=== PATIENT | female | born 1960 | race Caucasian/White ===

== ENCOUNTER 2018-04-01 09:33 | Observation (INO) | payer SELFPAY ==
[2018-04-01 13:13] LABS: Troponin I 0.033 ng/mL (< 0.028)
[2018-04-01] MEDS ORDERED: Ondansetron ODT 4 MG TAB PO PRN (13:45)
[2018-04-01] MEDS ORDERED: Ondansetron PF 4 MG/2 ML Vial IVP PRN (13:45)
[2018-04-01 16:03] LABS: Troponin I 0.036 ng/mL (< 0.028)
[2018-04-01] MEDS ORDERED: Acetaminophen 325 MG TAB PO PRN (16:48)
--- NOTE | 2018-04-01 18:01 | HP ---
CHIEF COMPLAINT: Dyspnea on exertion and orthopnea x2 weeks. HISTORY OF PRESENT ILLNESS: This is a 57-year-old woman with a background of hypertension, who presents to the ED as a transfer from [place] for evaluation of persistent shortness of breath for the last 2 weeks. The patient states she has noted increased dyspnea on exertion and when lying flat. She reports feeling gurgling in her chest with difficulty catching her breath at times even once sat upright. She reports being off her hypertension medication since May 2017. She has no known underlying heart disease or known lung disease. She does report being a heavy smoker and currently smokes half a pack per day, significantly reduced from what she smoked in the past. She reports having a very strong family history of heart disease in both her mother's and father's side. Mother of an VT in the 50s and reports her mother had multiple MIs. She states her father also had multiple MIs as well as strokes. She reports having a chronic cough without any hemoptysis. Denies having any changes in her appetite. Has not had any nausea or vomiting. Denies having any chills, fevers, or night sweats. She reports having discomfort in her chest when lying flat, but otherwise denies any chest pain. Denies any abdominal pain, nausea, or vomiting. No urinary symptoms. Has not had any lower leg edema or swelling. Denies any calf pain. All other systems are negative. In the ED, she has undergone a chest x-ray, notable for enlarged heart. Final report not available. Changes suggestive of heart failure were seen as per ED physician. BNP raised at 2914. Initial TnI was 0.023. Serial TnI was pending. D-dimer was negative. She is being admitted for further workup and management. She was given Lasix and has had frequent urinations since. The patient states she has noticed significant improvement with her breathing since given the Lasix. She also did have relief of her discomfort with nitroglycerin, which was also given in the ED. At present, she feels comfortable and is without any complaints. PAST MEDICAL HISTORY: Hypertension. PAST SURGICAL HISTORY: Left foot surgery. SOCIAL HISTORY: She drinks socially. Denies any illicit drug use. Reports smoking half a pack per day. Has been a long-time smoker for approximately 30 years. ALLERGIES: NO KNOWN DRUG ALLERGIES. CURRENT MEDICATIONS: Amlodipine 5 mg p.o. daily. The patient has been off this since May 2017. PHYSICAL EXAMINATION: VITAL SIGNS: Temperature 97.7, pulse 87, respirations 12, O2 saturation 96% on room air, and blood pressure 115/74. GENERAL: The patient was found resting comfortably in bed with head elevated and in no apparent distress. SKIN: Normal warm and dry. No cyanosis. HEENT: Normocephalic and atraumatic. Pupils are equal, round, and reactive to light. Sclerae anicteric. Oropharynx is clear. NECK: Supple with no lymphadenopathy. LUNGS: Clear to auscultation bilaterally. CARDIOVASCULAR: Regular rate and rhythm. ABDOMEN: Soft, nontender, nondistended with bowel sounds present. No guarding or rigidity. No CVA tenderness. EXTREMITIES: No clubbing, cyanosis, or edema. NEUROLOGIC: Alert and oriented x3. LABORATORY DATA: TnI is 0.023. Awaiting subsequent TnIs. BNP is 2914. D- dimer negative. Hemoglobin 16.4, hematocrit 52.1, and platelets 272. Electrolytes unremarkable. BUN 20, creatinine 0.85 eGFR 69. LFTs unremarkable. CK-MB 3.4. IMAGING DATA: 1. Chest x-ray done on 04/01/2018. Notable for cardiomegaly, bilateral vascular congestion, mild interstitial edema, evidence for CHF. IMPRESSION: The patient is being admitted to the hospital for management of the following. 1. Orthopnea/dyspnea. Continue to monitor O2 saturation. Significantly improved following Lasix. 2. New-onset congestive heart failure. Status post Lasix. Echo and Cardiology Consult. 3. Hypertension. Monitor blood pressure. Hold amlodipine as blood pressure is currently well controlled. 4. Mild headache, resolving. Possibly related to nitroglycerin given in the ED. Monitor. 5. Gastrointestinal prophylaxis. 6. Venous thromboembolism prophylaxis. This patient's case was discussed with Dr. Nava, who agrees with the plan of care as described above. Job ID: [id number] [facility]
[2018-04-01 18:45] LABS: Troponin I 0.032 ng/mL (< 0.028)
[2018-04-01] MEDS ORDERED: Lisinopril 5 MG TAB PO SCH (19:45)
[2018-04-01] MEDS ORDERED: Aspirin 81 mg Enteric Coated Tablet PO SCH (19:45)
--- NOTE | 2018-04-02 01:36 | CON ---
DATE OF CONSULTATION: 04/01/2018 TYPE OF CONSULTATION: Cardiology. REASON FOR CONSULTATION: Congestive heart failure. HISTORY OF PRESENT ILLNESS: Yoly White is a 57-year-old woman with congestive heart failure. Ms. White states she has not been doing well for 2-1/2weeks. She has been unable to lay flat. She has to sit up in bed to breathe. She got progressively worse due to difficulty breathing and "gurgling" in her chest. Finally came to the emergency room, found to be in heart failure, received diuretics, feeling better. The patient states she had a heart catheterization done at some point in the past at some place near [facility], but can not remember where or when this happened. She thinks there is no block that she does not know for sure. She has had no chest pain or pressure. The patient, otherwise, has been in fair health. She has a history of hypertension. She was prescribed amlodipine, but has been off it. ALLERGIES: NONE KNOWN. SOCIAL HISTORY: Smokes less than 1/2 pack cigarettes per day. REVIEW OF SYSTEMS: CONSTITUTIONAL: No significant weight gain or loss. VISION: No changes. HEARING: No changes. PULMONARY: No cough or wheezing. Positive shortness of breath. CARDIAC: Positive for shortness of breath. GASTROINTESTINAL: No nausea, vomiting, or diarrhea. SKIN: No rashes. NEUROLOGIC: No unilateral weakness or numbness. PSYCHIATRIC: No unusual depression or anxiety. HEMATOLOGIC: No unusual bruising. GENITOURINARY: No burning with urination. PHYSICAL EXAMINATION: GENERAL: This is a thin 57-year-old woman, resting comfortably. She can lay flat now, not completely comfortable, but much better. VITAL SIGNS: Blood pressure 125/77, pulse 80, it is regular. EYES: Sclerae nonicteric. MOUTH: Mucous membranes moist. NECK: Supple. No lymphadenopathy. LUNGS: There are bibasilar rales. CARDIAC: Normal S1, normal S2. I do not hear murmur, rub, or gallop. ABDOMEN: Soft and nontender. No hepatomegaly. EXTREMITIES: Warm and dry. No clubbing. No cyanosis. No edema. Peripheral pulses are intact and normal. SKIN: Warm and dry. PERTINENT LABORATORY: BNP 2914. Potassium is 3.8. EKG; sinus rhythm, what looks like left ventricular hypertrophy. ASSESSMENT: 1. Congestive heart failure noted at this point whether systolic or diastolic or mixed. 2. She probably has some degree of left ventricular hypertrophy. Echocardiogram will be diagnostic tomorrow. May have a combination, but we will wait final on the echo. 3. She thinks she had normal coronary arteries and catheterization previously which she does not know when this occurred or where. PLAN: 1. Beta-blockers low-dose. 2. ELIANE inhibitors. 3. Diuretics. 4. Echocardiogram tomorrow. 5. Probably will need cardiac catheterization this admission tentatively on Friday. Would recommend admission for this patient. Job ID: [id number]
[2018-04-02] MEDS: Furosemide 20 MG/2 ML VIAL SLOW IVP SCH ×2 (05:39→13:48)
[2018-04-02 05:53] LABS: #Eosinphils 0.2 thou/uL (0.0-0.7); #Lymphocytes 1.5 thou/uL (1.20-3.40); #Monocytes 0.7 thou/uL (0.11-0.59); #Neutrophils 4.1 thou/uL (1.40-6.50); %Basophils 0.7 % (0.0-1.0); %Eosinophils 2.8 % (0.0-10.0); %Lymphocytes 23.2 % (21.0-51.0); %Monocytes 10.6 % (0.0-10.0); %Neutrophils 62.8 % (42.0-75.0); Hemoglobin 16.2 g/dL (12.0-16.0); Mean Corpuscular HGB CONC 32.7 g/dL (32.0-36.0); Mean Corpuscular Hemoglobin 30.1 pg (27.0-31.0); Mean Corpuscular Volume 91.9 fL (78.0-98.0); Mean Platelet Volume 8.5 fL (7.4-10.4); Platelet Count 234 thou/uL (130-400); Red Blood Cell (RBC) Count 5.37 mill/uL (4.20-5.40); White Blood Cell (WBC) Count 6.5 thou/uL (4.8-10.8)
[2018-04-02 06:20] LABS: ALT (SGPT) 27 U/L (8-55); AST (SGOT) 19 U/L (5-34); Albumin 3.7 g/dL (3.5-5.0); Alkaline Phosphatase 88 U/L (40-150); Anion Gap 14 mmol/L (10-20); BUN (Urea Nitrogen) 19 mg/dL (9.8-20.1); Bilirubin, Total 0.7 mg/dL (0.2-1.2); Calc. Creatinine Clearance 63 mL/min (70-130); Calcium 9.3 mg/dL (7.8-10.44); Carbon Dioxide 25 mmol/L (22-29); Chloride 105 mmol/L (98-107); Estimated GFR-MDRD 76; Globulin 2.5 g/dL (2.4-3.5); Glucose 82 mg/dL (70-105); Potassium 3.6 mmol/L (3.5-5.1); Protein, Total 6.2 g/dL (6.0-8.3); Sodium 140 mmol/L (136-145)
[2018-04-02] MEDS ORDERED: Potassium Chloride 20 MEQ TAB PO SCH (08:00)
[2018-04-02] MEDS ORDERED: Enoxaparin Sodium 30 MG/0.3 ML SYRINGE SC SCH (09:00)
[2018-04-02] MEDS ORDERED: Amlodipine 5 MG TAB PO SCH (09:00)
[2018-04-02] MEDS: Carvedilol 3.125 MG TAB PO SCH ×2 (09:01→16:45)
[2018-04-02] MEDS: Lisinopril 5 MG TAB PO SCH (09:02)
[2018-04-02] MEDS: Aspirin 81 mg Enteric Coated Tablet PO SCH (09:03)
[2018-04-02 14:27] VITALS: BMI 17.7
[2018-04-02] MEDS ORDERED: Diazepam 5 MG TAB PO SCH (19:15)
[2018-04-02] MEDS ORDERED: Communication Order-Pharmacy FS SCH (19:15)
--- NOTE | 2018-04-02 19:42 | PRG ---
DATE OF SERVICE: 04/02/2018 SUBJECTIVE: Ms. White is breathing okay at rest. She can lie flat now, but with exertion, she feels very short of breath. OBJECTIVE: VITAL SIGNS: Her blood pressure is 110/77, followed by 142/71, pulse is 68 and regular. LUNGS: Clear. CARDIAC: Normal S1 and normal S2. ABDOMEN: Soft and nontender. EXTREMITIES: There is no edema. DIAGNOSTIC DATA: Echocardiogram shows an ejection fraction of 15%. ASSESSMENT: Severely depressed left ventricular function, suspect cardiomyopathy but could have underlying coronary artery disease. PLAN: Proceed the cardiac catheterization tomorrow. Discussed risk of stroke, heart attack, iodine allergy, loss of blood supply to leg or kidney, stent thrombosis, stent restenosis. The patient understands and wished to proceed. Job ID: [id number]
--- NOTE | 2018-04-02 21:55 | PDOC.PN ---
- Subjective Encounter Start Date: 04/02/18 Encounter Start Time: 14:00 Patient lying in bed, no events over night. She reports improved shortness of breath today. Denies chest pain. Echo displayed reduced EF. Dr Moreno planning heart cath tomorrow - Objective Resuscitation Status - Order Detail: 04/01/18 15:12 Resuscitation Status Routine Co-Sign Provider: Resuscitation Status: FULL: Full Resuscitation MAR Reviewed: Yes Vital Signs & Weight: Vital Signs (12 hours) Temp Pulse Resp BP Pulse Ox 04/02/18 19:11 98.2 F 87 16 116/75 98 04/02/18 15:25 97.8 F 68 16 142/71 H 96 04/02/18 11:35 97.4 F L 64 16 111/77 96 Weight Admit Weight 112 lb 6.972 oz Weight 109 lb 12.48 oz I&O: 04/01/18 04/02/18 04/03/18 06:59 06:59 06:59 Intake Total 1082 1200 Output Total 1600 Balance -518 1200 Result Diagrams: 04/02/18 05:35 04/02/18 05:34 Radiology Reviewed by me: Yes Phys Exam - Physical Examination Constitutional: NAD HEENT: PERRLA, moist MMs, oral pharynx no lesions Neck: no nodes, supple Respiratory: no wheezing, no rales, clear to auscultation bilateral Cardiovascular: RRR, no significant murmur, no rub Gastrointestinal: soft, non-tender, no distention, positive bowel sounds Musculoskeletal: no edema, pulses present Neurological: non-focal, normal sensation Lymphatic: no nodes Psychiatric: normal affect, A&O x 3 Skin: no rash, normal turgor, cap refill <2 seconds Dx/Plan (1) Systolic heart failure Code(s): I50.20 - UNSPECIFIED SYSTOLIC (CONGESTIVE) HEART FAILURE Status: Acute (2) Hypertension Code(s): I10 - ESSENTIAL (PRIMARY) HYPERTENSION Status: Acute (3) Nicotine dependence Code(s): F17.200 - NICOTINE DEPENDENCE, UNSPECIFIED, UNCOMPLICATED Status: Acute - Plan cont current plan of care * Echo results reviewed and discussed with patient * Dr Moreno planning heart cath tomorrow, expects cardiomyopathy * Await heart cath and further recommendations for medical management * Continue current management * Monitor vitals and labs
[2018-04-03 04:48] LABS: #Basophils 0.1 thou/uL (0.0-0.2); #Eosinphils 0.2 thou/uL (0.0-0.7); #Lymphocytes 1.8 thou/uL (1.20-3.40); #Monocytes 0.8 thou/uL (0.11-0.59); #Neutrophils 3.6 thou/uL (1.40-6.50); %Eosinophils 3.5 % (0.0-10.0); %Lymphocytes 27.3 % (21.0-51.0); %Monocytes 12.3 % (0.0-10.0); %Neutrophils 55.9 % (42.0-75.0); Mean Corpuscular HGB CONC 33.8 g/dL (32.0-36.0); Mean Corpuscular Hemoglobin 30.9 pg (27.0-31.0); Mean Corpuscular Volume 91.5 fL (78.0-98.0); Mean Platelet Volume 8.4 fL (7.4-10.4); Platelet Count 231 thou/uL (130-400); RBC Distribution Width 11.9 % (11.5-14.5); Red Blood Cell (RBC) Count 5.18 mill/uL (4.20-5.40); White Blood Cell (WBC) Count 6.5 thou/uL (4.8-10.8)
[2018-04-03 05:10] LABS: ALT (SGPT) 25 U/L (8-55); AST (SGOT) 16 U/L (5-34); Albumin 3.8 g/dL (3.5-5.0); Alkaline Phosphatase 91 U/L (40-150); Anion Gap 10 mmol/L (10-20); BUN (Urea Nitrogen) 26 mg/dL (9.8-20.1); Bilirubin, Total 0.5 mg/dL (0.2-1.2); Calc. Creatinine Clearance 59 mL/min (70-130); Calcium 9.4 mg/dL (7.8-10.44); Carbon Dioxide 30 mmol/L (22-29); Chloride 104 mmol/L (98-107); Estimated GFR-MDRD 69; Globulin 2.5 g/dL (2.4-3.5); Glucose 97 mg/dL (70-105); Protein, Total 6.3 g/dL (6.0-8.3); Sodium 140 mmol/L (136-145)
[2018-04-03] MEDS: Lisinopril 5 MG TAB PO SCH (05:58)
[2018-04-03] MEDS: Aspirin 81 mg Enteric Coated Tablet PO SCH (05:58)
[2018-04-03] MEDS: Carvedilol 3.125 MG TAB PO SCH (05:58)
[2018-04-03] MEDS ORDERED: Sodium Chloride 0.9% 1,000 ML IV SCH (06:00)
[2018-04-03] MEDS ORDERED: Midazolam HCl 2 mg/2 ml Vial ONE (07:12)
[2018-04-03] MEDS ORDERED: Fentanyl 100 MCG/2 ML VIAL ONE (07:12)
[2018-04-03] MEDS ORDERED: Metoprolol Tartrate 5 MG/5 ML VIAL ONE (07:27)
[2018-04-03] MEDS ORDERED: Nitroglycerin 0.4 MG TAB (25 Tab Bottle) SL PRN (07:29)
[2018-04-03] MEDS ORDERED: Bisacodyl 5 MG TAB PO PRN (07:29)
[2018-04-03] MEDS ORDERED: Loratadine 10 MG TAB PO PRN (07:29)
[2018-04-03] MEDS ORDERED: Calcium Carbonate 500 MG ChewTAB PO PRN (07:29)
[2018-04-03] MEDS ORDERED: Cepastat Lozenges 1 LOZ PO PRN (07:29)
[2018-04-03] MEDS ORDERED: Sodium Chloride 0.65% Nasal 44 ML BOT EA NARE PRN (07:29)
[2018-04-03] MEDS ORDERED: Eucerin (Mineral Oil/Petrolatum,White) 30 gm Jar TOP PRN (07:29)
[2018-04-03] MEDS ORDERED: Diabetic Tussin 200 MG/10 ML UDCUP PO PRN (07:29)
[2018-04-03] MEDS ORDERED: Zolpidem Tartrate 5 MG TAB PO PRN (07:29)
[2018-04-03] MEDS ORDERED: Ondansetron ODT 4 MG TAB PO PRN (07:29)
[2018-04-03] MEDS ORDERED: HYDROcodone/Acetaminophen 5/325 mg Tablet PO PRN (07:29)
[2018-04-03] MEDS ORDERED: Loperamide HCl 2 MG CAP PO PRN (07:29)
[2018-04-03] MEDS ORDERED: Senokot S 8.6-50 MG TAB PO PRN (07:29)
[2018-04-03] MEDS ORDERED: Artificial Tears 18 DROP/0.9 ML EA EYE PRN (07:29)
[2018-04-03] MEDS ORDERED: Acetaminophen 500 MG TAB PO PRN (07:29)
[2018-04-03] MEDS ORDERED: hydrALAZINE 20 MG/ML VIAL SLOW IVP PRN (07:29)
[2018-04-03] MEDS ORDERED: Ondansetron PF 4 MG/2 ML Vial IVP PRN (07:29)
[2018-04-03] MEDS ORDERED: Sodium Chloride 0.9% 200 ML IV PRN (08:00)
[2018-04-03] MEDS ORDERED: Acetaminophen/Codeine 30-300mg Tablet PO PRN (08:00)
[2018-04-03 08:37] LABS: Cardiac Risk 3.1 (Less than 4.5); Magnesium 2.4 mg/dL (1.6-2.6); Uric Acid 5.6 mg/dL (2.6-6.0)
--- NOTE | 2018-04-03 10:20 | PDOC.PN ---
- Subjective Encounter Start Date: 04/03/18 Encounter Start Time: 09:45 -: old records requested/rev Patient seen and examined. No new complaints. No overnight events - Objective Resuscitation Status - Order Detail: 04/01/18 15:12 Resuscitation Status Routine Co-Sign Provider: Resuscitation Status: FULL: Full Resuscitation MAR Reviewed: Yes Vital Signs & Weight: Vital Signs (12 hours) Temp Pulse Resp BP BP Pulse Ox 04/03/18 08:24 97.7 F 61 20 110/77 99 04/03/18 08:17 63 13 110/77 04/03/18 05:58 73 131/84 04/03/18 04:15 97.8 F 73 16 116/86 96 Weight Admit Weight 112 lb 6.972 oz Weight 112 lb 9.6 oz I&O: 04/02/18 04/03/18 04/04/18 06:59 06:59 06:59 Intake Total 1082 2040 240 Output Total 1600 1300 Balance -518 740 240 Result Diagrams: 04/03/18 04:07 04/03/18 04:07 Radiology Reviewed by me: Yes (echo report noted) EKG Reviewed by me: Yes (nsr) Phys Exam - Physical Examination Constitutional: NAD HEENT: PERRLA, moist MMs, sclera anicteric Neck: no JVD, supple Respiratory: no wheezing, no rales, no rhonchi Cardiovascular: RRR, no significant murmur, no rub Gastrointestinal: soft, non-tender, no distention, positive bowel sounds Musculoskeletal: no edema, pulses present Neurological: non-focal, normal sensation, moves all 4 limbs Lymphatic: no nodes Psychiatric: normal affect, A&O x 3 Skin: no rash, normal turgor Dx/Plan (1) Acute systolic ACC/AHA stage C congestive heart failure Code(s): I50.21 - ACUTE SYSTOLIC (CONGESTIVE) HEART FAILURE Status: Acute (2) Demand ischemia of myocardium Code(s): I24.8 - OTHER FORMS OF ACUTE ISCHEMIC HEART DISEASE Status: Acute (3) Hypertension Code(s): I10 - ESSENTIAL (PRIMARY) HYPERTENSION Status: Chronic (4) Nicotine dependence Code(s): F17.200 - NICOTINE DEPENDENCE, UNSPECIFIED, UNCOMPLICATED Status: Chronic (5) Protein-calorie malnutrition, moderate Code(s): E44.0 - MODERATE PROTEIN-CALORIE MALNUTRITION Status: Chronic - Plan cont current plan of care * medication reviewed as below * symptomatic treatment * today cardiac cath done * continue coreg, lisinopril * if cardiology ok, will consider discharge * she is euvolemic * life vest will defer to cardiology * she will need repeat echo on follow up visit. Review of Systems - Review of Systems ENT: negative: Ear Pain, Ear Discharge, Nose Pain, Nose Discharge, Nose Congestion, Mouth Pain, Mouth Swelling, Throat Pain, Throat Swelling, Other Respiratory: negative: Cough, Dry, Shortness of Breath, Hemoptysis, SOB with Excertion, Pleuritic Pain, Sputum, Wheezing Cardiovascular: negative: chest pain, palpitations, orthopnea, paroxysmal nocturnal dyspnea, edema, light headedness, other Gastrointestinal: negative: Nausea, Vomiting, Abdominal Pain, Diarrhea, Constipation, Melena, Hematochezia, Other Genitourinary: negative: Dysuria, Frequency, Incontinence, Hematuria, Retention , Other Musculoskeletal: negative: Neck Pain, Shoulder Pain, Arm Pain, Back Pain, Hand Pain, Leg Pain, Foot Pain, Other Skin: negative: Rash, Lesions, Dioni, Bruising, Other - Medications/Allergies Allergies/Adverse Reactions: Allergies Allergy/AdvReac Type Severity Reaction Status Date / Time No Known Allergies Allergy Verified 04/01/18 13:40 Medications: Current Medications Acetaminophen (Tylenol) 650 mg PO Q4H PRN PRN Reason: Headache/Fever Acetaminophen (Tylenol) 500 mg PO Q6H PRN PRN Reason: Mild Pain (1-3) Acetaminophen/Codeine Phosphate (Tylenol #3) 1 tab PO Q4H PRN PRN Reason: Mild Pain (1-3) Hydrocodone Bitart/Acetaminophen ([place] 5/325) 1 tab PO Q4H PRN PRN Reason: Moderate Pain (4-6) Artificial Tears (Tears Naturale) 2 drop EA EYE PRN PRN PRN Reason: Dry Eyes Aspirin (Ecotrin) 81 mg PO DAILY [facility] Last Admin: 04/03/18 05:58 Dose: 81 mg Bisacodyl (Dulcolax) 10 mg PO DAILYPRN PRN PRN Reason: Constipation Calcium Carbonate (Tums) 1,000 mg PO Q4H PRN PRN Reason: Heartburn or Indigestion Carvedilol (Coreg) 6.25 mg PO BID-[facility] Diazepam (Valium) 5 mg PO ONCALL-OR [facility] Stop: 04/03/18 19:16 Last Admin: 04/03/18 06:35 Dose: 5 mg Guaifenesin (Robitussin Sf) 200 mg PO Q4H PRN PRN Reason: Cough Hydralazine HCl (Apresoline) 10 mg SLOW IVP Q4H PRN PRN Reason: SBP > 180 and HR < 70 Sodium Chloride (Normal Saline 0.9%) 1,000 mls @ 50 mls/hr IV .Q20H [facility] Last Admin: 04/03/18 05:53 Dose: 1,000 mls Sodium Chloride (Normal Saline 0.9%) 200 mls @ 0 mls/hr IV ONE PRN PRN Reason: SBP < 90 Stop: 04/03/18 23:00 Lisinopril (Zestril) 5 mg PO DAILY [facility] Last Admin: 04/03/18 05:58 Dose: 5 mg Loperamide HCl (Imodium) 2 mg PO PRN PRN PRN Reason: Diarrhea/Loose Stools Loratadine (Claritin) 10 mg PO DAILYPRN PRN PRN Reason: Sinus Symptoms Mineral Oil/White Petrolatum (Eucerin Cream) 0 gm TOP BIDPRN PRN PRN Reason: Dry Skin Miscellaneous Information (Communication Order-Pharmacy) 0 each FS ONE [facility] Stop: 04/03/18 19:16 Nitroglycerin (Nitrostat) 0.4 mg SL Q5MIN PRN PRN Reason: Chest Pain Ondansetron HCl (Zofran Odt) 4 mg PO Q6H PRN PRN Reason: Nausea/Vomiting Ondansetron HCl (Zofran) 4 mg IVP Q6H PRN PRN Reason: Nausea/Vomiting Senna/Docusate Sodium (Senokot S) 2 tab PO BID PRN PRN Reason: Constipation Sodium Chloride (Flush - Normal Saline) 10 ml IVF Q12HR [facility] Last Admin: 04/03/18 05:58 Dose: Not Given Sodium Chloride (Flush - Normal Saline) 10 ml IVF PRN PRN PRN Reason: Saline Flush Sodium Chloride ([place] 0.65%) 0 ml EA NARE QIDPRN PRN PRN Reason: Nasal Congestion Throat Lozenges (Cepastat Lozenges) 1 drake PO Q2H PRN PRN Reason: Sore Throat Zolpidem Tartrate (Ambien) 5 mg PO HSPRN PRN PRN Reason: Insomnia
[2018-04-03] MEDS ORDERED: Iopamidol 370 76% 100 ML VIAL ONE (12:46)
--- NOTE | 2018-04-03 15:50 | PRG ---
DATE OF SERVICE: 04/03/2018 Ms. White underwent cardiac catheterization today. She has nonobstructive coronary artery disease. We discussed a possible "LifeVest." She indicates that she does not think she could afford that, but we will ask the company to come by and talk to her to see if anything can be arranged financially. After 3 months of treatment, she can be considered for an implantable permanent defibrillator. From my standpoint, the patient can be discharged tomorrow. After that, if issue is resolved, my partners will be here to follow up and see her in continued consultation as needed. The patient is currently on lisinopril. The dose will be increased to 10 mg a day. Coreg increased to 6.25 mg twice a day. Aspirin 81 mg a day. Pravastatin 40 mg a day. Recommend follow up in the [facility]. Job ID: [id number]
[2018-04-03] MEDS: Carvedilol 6.25 MG TAB PO SCH (16:43)
[2018-04-03] MEDS ORDERED: Atorvastatin Calcium 10 MG TAB PO SCH (21:00)
[2018-04-04 07:34] VITALS: TEMP 97.9
[2018-04-04] MEDS: Aspirin 81 mg Enteric Coated Tablet PO SCH (08:46)
[2018-04-04] MEDS: Carvedilol 6.25 MG TAB PO SCH (08:46)
[2018-04-04] MEDS ORDERED: Lisinopril 10 MG TAB PO SCH (09:00)
[2018-04-04 12:49] VITALS: BP 124/94
--- NOTE | 2018-04-04 23:00 | DIS ---
DATE OF ADMISSION: 04/01/2018 DATE OF DISCHARGE: 04/04/2018 CONDITION AT THE TIME OF DISCHARGE: Stable and improved. DISCHARGE DISPOSITION: Home. DISCHARGE DIAGNOSIS: 1. Nonischemic severe cardiomyopathy. 2. Acute on chronic systolic congestive heart failure, ACC class C. 3. Demand ischemia myocardium. 4. Hypertension. 5. Nicotine dependence. 6. Moderate protein calorie malnutrition. DISCHARGE MEDICATIONS: 1. Aldactone 25 mg daily. 2. Lisinopril 5 mg daily. 3. Carvedilol 6.25 mg p.o. b.i.d. 4. Aspirin 81 mg daily. 5. Pravastatin 40 mg daily. PRIMARY CARE PHYSICIAN: Rachel Kimble, physician ortho assistant. IN-HOUSE CONSULTATION: Cardiology, Dr. Moreno. PROCEDURES DONE IN THE HOSPITAL: 1. Cardiac catheterization, which shows normal coronaries and LV ejection fraction 15%. 2. Transthoracic echocardiogram, which shows EF of 10% to 15% with global hypokinesis. HISTORY OF PRESENTING ILLNESS: Ms. White is a 57-year-old female with past medical history of hypertension and tobacco dependence, who presented to the emergency room with complaints of dyspnea on exertion and orthopnea for the last 2 weeks duration. She gave a history of significant family history of heart disease in both her father's and mother's side. She was found to have elevated troponin upon presentation at 0.033. Her BNP upon presentation was 1100. She was admitted with the presumptive diagnosis of acute CHF and fluid overload. Cardiology was consulted. Please see admission history and physical. HOSPITAL COURSE: The patient underwent an echocardiogram, which showed low EF, so she underwent cardiac catheterization, which showed normal coronary or mild nonobstructing plaques. Dr. Moreno saw the patient and she was started on cardiac prudent medications. She remained hemodynamically stable throughout the hospitalization. LifeVest was tried to be arranged for her, but due to financial reasons, the patient was not able to afford it. As of this morning, she is hemodynamically stable and will be discharged as she is cleared by discharge for Cardiology. She will continue to take aspirin, beta bri, ELIANE inhibitor, statin, and Aldactone and will follow up in the outpatient setting with Dr. Moreno. She was seen and examined prior to discharge. PHYSICAL EXAMINATION: VITAL SIGNS: This morning vital signs; temperature 97.9, pulse of 70, respirations 20, saturating 97% on room air, and blood pressure 124/94. GENERAL: No acute distress. She does have a high anxiety and is tearful because of the inability to afford the LifeVest. CHEST: Clear to auscultation bilaterally. HEART: Rate and rhythm are regular. EXTREMITIES: Free of any cyanosis, clubbing, or edema. LABORATORY DATA: Lipid panel unremarkable. TSH within normal limits. She is once again educated about staying off the cigarettes and follow up with Cardiology and primary care physician in the outpatient setting. Job ID: [id number]
== END 2018-04-04 14:40 | disposition home or self-care (01) ==
LOC: ERS 09:33 → 2SW 13:28
PROVIDERS: ADMIT Internal Medicine Infectious Disease; ATTEND Internal Medicine Infectious Disease
PROC: 4A023N7 Measurement of Cardiac Sampling and Pressure, Left Heart, Percutaneous Approach (ICD-10-PCS; principal; 2018-04-04)
PROC: B2111ZZ Fluoroscopy of Multiple Coronary Arteries using Low Osmolar Contrast (ICD-10-PCS; 2018-04-04)
DX: I42.0 Dilated cardiomyopathy (principal); I11.0 Hypertensive heart disease with heart failure; I50.23 Acute on chronic systolic (congestive) heart failure; I24.8 Other forms of acute ischemic heart disease; I25.10 Atherosclerotic heart disease of native coronary artery without angina pectoris; E44.0 Moderate protein-calorie malnutrition; Z68.1 Body mass index [BMI] 19.9 or less, adult; F17.210 Nicotine dependence, cigarettes, uncomplicated; Z79.82 Long term (current) use of aspirin; Z79.899 Other long term (current) drug therapy; Z98.890 Other specified postprocedural states
CPT/HCPCS: 36415; 76942; 80053; 80061; 83735; 83880; 84443; 84550; 85025; 90471; 90686; 90732; 93005; 93306; 93458; 93798; 96361; 96372; 96374; 96376; 99152; C1769; G0008; G0009; G0378; J1644; J1650; J1940; J2250; J3010

== ENCOUNTER 2018-04-29 07:20 | Inpatient (IN) | payer SELFPAY ==
[2018-04-29 07:59] LABS: #Eosinphils 0.1 thou/uL (0.0-0.7); #Lymphocytes 1.3 thou/uL (1.20-3.40); #Monocytes 0.6 thou/uL (0.11-0.59); #Neutrophils 4.9 thou/uL (1.40-6.50); %Basophils 0.5 % (0.0-1.0); %Eosinophils 1.4 % (0.0-10.0); %Lymphocytes 18.1 % (21.0-51.0); %Monocytes 8.4 % (0.0-10.0); %Neutrophils 71.6 % (42.0-75.0); Hemoglobin 15.7 g/dL (12.0-16.0); Mean Corpuscular HGB CONC 31.6 g/dL (32.0-36.0); Mean Corpuscular Hemoglobin 29.5 pg (27.0-31.0); Mean Corpuscular Volume 93.5 fL (78.0-98.0); Mean Platelet Volume 8.6 fL (7.4-10.4); Platelet Count 224 thou/uL (130-400); RBC Distribution Width 11.8 % (11.5-14.5); Red Blood Cell (RBC) Count 5.32 mill/uL (4.20-5.40); White Blood Cell (WBC) Count 6.9 thou/uL (4.8-10.8)
[2018-04-29 08:14] LABS: ALT (SGPT) 62 U/L (8-55); AST (SGOT) 38 U/L (5-34); Albumin 3.9 g/dL (3.5-5.0); Alkaline Phosphatase 90 U/L (40-150); Anion Gap 13 mmol/L (10-20); BUN (Urea Nitrogen) 18 mg/dL (9.8-20.1); Bilirubin, Total 0.8 mg/dL (0.2-1.2); CK (CPK) 53 U/L (29-168); Calc. Creatinine Clearance 0 mL/min (70-130); Calcium 9.1 mg/dL (7.8-10.44); Carbon Dioxide 24 mmol/L (22-29); Chloride 108 mmol/L (98-107); Estimated GFR-MDRD 73; Globulin 2.3 g/dL (2.4-3.5); Glucose 97 mg/dL (70-105); Protein, Total 6.2 g/dL (6.0-8.3); Sodium 141 mmol/L (136-145)
[2018-04-29] MEDS ORDERED: Furosemide 40 MG/4 ML VIAL ONE ×2 (08:37→13:55)
--- NOTE | 2018-04-29 08:54 | RAD ---
PORTABLE CHEST 1 VIEW: Date: 04/29/18 Time: 0743 hours HISTORY: CHF. Dyspnea. FINDINGS: Comparison made with exam of 04/01/18. FINDINGS/IMPRESSION: The heart is enlarged. There is mild pulmonary vascular congestion. No lobar consolidation or pneumot horaces are seen. Small pleural effusions may be present. POS: [facility]
[2018-04-29] MEDS ORDERED: Acetaminophen 325 MG TAB PO PRN (10:26)
[2018-04-29] MEDS ORDERED: Guaifenesin DM 100-10/5 ML UDCUP PO PRN (10:26)
[2018-04-29] MEDS ORDERED: Senokot S 8.6-50 MG TAB PO PRN (10:26)
--- NOTE | 2018-04-29 14:29 | HP ---
REASON FOR ADMISSION: Acute CHF exacerbation with systolic dysfunction. HISTORY OF PRESENTING ILLNESS: The patient gives history of shortness of breath and coughing spells from last evening. This got worse to the point that she was unable to breathe, called EMS, and the patient was brought to ER. Has no complaints of fever. She states she quit smoking a month back. She is currently on a LifeVest due to ejection fraction of around 15% during her last hospitalization here in March. The patient has had complete workup including cardiac catheterization done, which showed very minimal CAD and had nonischemic cardiomyopathy. PAST MEDICAL AND SURGICAL HISTORY: History of CHF with ejection fraction of around 15%, hypertension, dyslipidemia, left foot surgery. CURRENT MEDICATIONS: 1. Lisinopril 5 mg daily. 2. Coreg 6.25 mg twice daily. 3. Pravachol 40 mg p.o. daily. 4. Aspirin 81 mg p.o. daily. ALLERGIES: NO KNOWN DRUG ALLERGIES. PERSONAL HISTORY: Quit smoking a month back prior to which has smoked half pack a day for nearly 25 years. Does not abuse alcohol or drugs. She lives alone. FAMILY HISTORY: Mother at the age of 54. She has had history of DC. Father in his 60s from [place]. CODE STATUS: Full. Power of workers compensation defense attorney is her daughter, Ms. Guilherme Barcenas. REVIEW OF SYSTEMS: CONSTITUTIONAL: Negative for weight loss or gain, ability to conduct usual activities. SKIN: Negative for rash, itching. EYES: Negative for double vision, pain. ENT/MOUTH: Negative for nose bleeding, neck stiffness, pain, tenderness. CARDIOVASCULAR: Negative for palpitations, dyspnea on exertion, orthopnea. RESPIRATORY: Negative for shortness of breath, wheezing, cough, hemoptysis, fever or night sweats. GASTROINTESTINAL: Negative for poor appetite, abdominal pain, heartburn, nausea, vomiting, constipation, or diarrhea. GENITOURINARY: Negative for urgency, frequency, dysuria, nocturia. MUSCULOSKELETAL: Negative for pain, swelling. NEUROLOGIC/PSYCHIATRIC: Negative for anxiety, depression. ALLERGY/IMMUNOLOGIC: Negative for skin rash, bleeding tendency. PHYSICAL EXAMINATION: GENERAL: The patient is a 57-year-old female, who is currently not in any acute distress. VITAL SIGNS: Blood pressure 138/110, pulse 90 per minute, respiratory rate 16 per minute, temperature 98 degrees Fahrenheit, saturating 97% on room air. NECK: Supple. No elevated JVD. HEENT: Eyes; extraocular muscles intact. Pupils reacting to light. Oral cavity, mucous membranes are moist. No exudates or congestion. CARDIOVASCULAR: S1 and S2 heard. Rales plus in the infrascapular area. ABDOMEN: Soft. Bowel sounds heard. No tenderness, rigidity, or guarding. EXTREMITIES: No peripheral edema or calf tenderness. VASCULAR: Peripheral pulses 1+ bilateral. No ischemic ulcerations or gangrene. CENTRAL NERVOUS SYSTEM: No gross focal deficits noted. The patient is alert, awake, oriented. Well psychiatric system. The patient's mood is euthymic. No hallucinations or delusions. LABORATORY DATA: White count of 6.9, H and H of 15 and 49, platelet count of 224, MCV is 93. Serum bicarb 24, BUN 18, creatinine 0.8, AST 38, ALT 62. BNP is 4886. Albumin is 3.9. First set of troponin is negative. DIAGNOSTIC DATA: EKG done shows sinus rhythm at 86 beats per minute. The signs of LVH seen. CLINICAL IMPRESSION AND PLAN: The patient will be admitted to telemetry for acute on chronic congestive heart failure exacerbation with systolic dysfunction and very poor ejection fraction. She is currently wearing a LifeVest. She will be gently diuresed. She has gotten 80 mg of Lasix IV x1 in the ER, and we will place her on 40 mg IV at 6 a.m. and 2 p.m. We will continue her home medications including aspirin, Coreg, Pravachol, lisinopril as before. We will consult Dr. Moreno, her chemical equipment repairer, during her stay here. The patient states she is compliant with her medications and diet. We will continue to closely monitor her on telemetry. Job ID: [id number]
[2018-04-29 15:35] VITALS: BMI 18.7
[2018-04-29] MEDS: Furosemide 40 MG/4 ML VIAL SLOW IVP SCH (15:55)
[2018-04-29] MEDS: Carvedilol 6.25 MG TAB PO SCH (16:48)
[2018-04-29] MEDS: Famotidine 20 MG TAB PO SCH (20:11)
[2018-04-29] MEDS ORDERED: Atorvastatin Calcium 10 MG TAB PO SCH (21:00)
[2018-04-29] MEDS ORDERED: Pravastatin Sodium 40 MG TAB PO SCH (21:00)
--- NOTE | 2018-04-29 21:59 | CON ---
DATE OF CONSULTATION: 04/29/2018 INDICATION FOR CONSULTATION: A 57-year-old female with nonischemic cardiomyopathy with ejection fraction of 10-15 percent, who was most recently in the hospital at the end of March with congestive heart failure symptoms. She has been diagnosed with severe cardiomyopathy. She has been placed with a LifeVest. She has been doing relatively well until she said yesterday she became extremely short of breath. She says that she has been watching for fluids and salt, but since being in the emergency room, she has been given IV diuretics. She has had multiple episodes of urination, these are not being measured. She did not go to the bathroom and apparently she has been feeling much better now. She denied any lower extremity edema. She had no chest pain. At this time, she is doing much better than what she was when she came to the emergency room. She had been scheduled apparently to be followed up with the [facility], but has not yet seen them and I believe she has a future appointment also with Dr. Moreno. She has not been seen in the office and she was seen in the hospital by Dr. Moreno for consultation in March. PAST MEDICAL HISTORY: Significant for the cardiomyopathy. Otherwise, she also had some illicit drug use in the past, but she said that was many, many years ago. She has a history of dyslipidemia and hypertension. SOCIAL HISTORY: She still continues to smoke about half pack a day. ALLERGIES: NONE. MEDICATIONS: Include: 1. Lisinopril 5 mg daily. 2. Coreg 6.25 mg supposed to be b.i.d., it is listed as being once a day. We will increase this up to twice daily. 3. Pravastatin 40 mg daily. 4. Aspirin 81 mg daily. REVIEW OF SYSTEMS: A 12-point review of systems unremarkable except what is noted in the history of present illness. PHYSICAL EXAMINATION: GENERAL: Reveals a middle-aged female who is in no acute distress at this time. She is alert and oriented. She has been ambulating in the emergency room without difficulties. VITAL SIGNS: Stable. Her blood pressure was 120/91, heart rate is 85 and regular. HEENT: Shows the head to be normocephalic and atraumatic. NECK: Carotid pulses are present. There were no bruits. No JVD. CHEST: Clear to auscultation. I did not hear any rales, rhonchi, or wheezing. She does have some decreased breath sounds in the right base, but somewhat difficult to auscultate clearly due to the LifeVest being in place. ABDOMEN: Soft, flat, and nontender. Positive bowel sounds are present. There is no organomegaly or masses noted. Femoral pulses are present. EXTREMITIES: No clubbing, cyanosis, or edema. Pedal pulses are somewhat decreased, but otherwise unremarkable. SKIN: Warm and dry. NEUROLOGIC: The patient appears to be fully intact. LABORATORY DATA: Shows a hemoglobin of 15.7, WBC of 6.9. Potassium is 4.0. Her BNP was 4886, and negative cardiac enzymes. Her AST was also elevated slightly at 38 and ALT was 62. Her creatinine 0.81. IMPRESSION: Congestive heart failure exacerbation associated with volume overload. She has done much better after being given IV diuretics in the emergency room. We will continue her on some diuretics. She will be admitted to the hospital, most likely for observation and hopefully will be able to discharged within the 24 hours. Otherwise, EKG is unchanged. She has a sinus rhythm with left ventricular hypertrophy, but no other acute changes. There is no significant change from her previous EKGs in the past. We will be more than happy to continue to follow the patient with you for her nonischemic cardiomyopathy and CHF exacerbation once she has passed her 90 days or even 30-45 days. If no improvement in her ejection fraction with medical management then most likely she will be a candidate for a permanent implant of a defibrillator due to the cardiomyopathy. Job ID: [id number]
[2018-04-30] MEDS: Furosemide 40 MG/4 ML VIAL SLOW IVP SCH (05:17)
[2018-04-30 06:26] LABS: Anion Gap 14 mmol/L (10-20); BUN (Urea Nitrogen) 23 mg/dL (9.8-20.1); Calc. Creatinine Clearance 58 mL/min (70-130); Calcium 9.1 mg/dL (7.8-10.44); Carbon Dioxide 25 mmol/L (22-29); Chloride 104 mmol/L (98-107); Estimated GFR-MDRD 67; Glucose 80 mg/dL (70-105); Potassium 3.7 mmol/L (3.5-5.1); Sodium 139 mmol/L (136-145)
[2018-04-30 07:25] VITALS: TEMP 97.7
[2018-04-30] MEDS: Famotidine 20 MG TAB PO SCH (08:43)
[2018-04-30] MEDS: Carvedilol 6.25 MG TAB PO SCH (08:43)
[2018-04-30] MEDS ORDERED: Enoxaparin Sodium 40 MG/0.4 ML SYRINGE SC SCH (09:00)
[2018-04-30] MEDS ORDERED: Lisinopril 5 MG TAB PO SCH (09:00)
[2018-04-30 11:43] VITALS: BP 109/77
--- NOTE | 2018-04-30 11:58 | PDOC.PN ---
- Subjective Encounter Start Date: 04/30/18 Encounter Start Time: 08:45 Subjective: no sob or chest pain -: is amb in room -: feels good and wants to go home - Objective Resuscitation Status - Order Detail: 04/29/18 10:23 Resuscitation Status Routine Resuscitation Status: FULL: Full Resuscitation Discussed with: POA: daughter Ms.Tamathi SETHI Reviewed: Yes Vital Signs & Weight: Vital Signs (12 hours) Temp Pulse Resp BP Pulse Ox 04/30/18 11:40 82 18 109/77 94 L 04/30/18 07:21 97.7 F 74 16 109/80 96 04/30/18 04:00 97.9 F 73 18 104/77 92 L Weight Weight 111 lb 3 oz I&O: 04/29/18 04/30/18 05/01/18 06:59 06:59 06:59 Intake Total 910 Output Total 1825 Balance -915 Result Diagrams: 04/29/18 07:42 04/30/18 05:27 Phys Exam - Physical Examination HEENT: PERRLA, moist MMs Neck: no JVD, supple Respiratory: no wheezing basal rales+ Cardiovascular: RRR, no significant murmur Gastrointestinal: soft, non-tender, positive bowel sounds Musculoskeletal: no edema, pulses present Neurological: non-focal, moves all 4 limbs Psychiatric: normal affect, A&O x 3 Dx/Plan (1) Acute systolic ACC/AHA stage C congestive heart failure Code(s): I50.21 - ACUTE SYSTOLIC (CONGESTIVE) HEART FAILURE Status: Acute Comment: ef of 15% (2) Dyslipidemia Code(s): E78.5 - HYPERLIPIDEMIA, UNSPECIFIED Status: Chronic (3) Cardiomyopathy Code(s): I42.9 - CARDIOMYOPATHY, UNSPECIFIED Status: Chronic (4) Hypertension Code(s): I10 - ESSENTIAL (PRIMARY) HYPERTENSION Status: Chronic Qualifiers: Hypertension type: essential hypertension Qualified Code(s): I10 - Essential (primary) hypertension - Plan has diuresed extremely well -: is almost euvolemic this am -: has recovered well quickly with her decompensated chf -: may dc home -: prescriptions for all her meds have been given to her * .
--- NOTE | 2018-04-30 12:39 | PDOC.CTH ---
Cardiology Progress Note - Subjective The pt seen and examined. No overnight events. No cardiac complaints. - Objective Vital Signs Temp Pulse Resp BP Pulse Ox 04/30/18 11:40 82 18 109/77 94 L 04/30/18 07:21 97.7 F 74 16 109/80 96 04/30/18 04:00 97.9 F 73 18 104/77 92 L Weight 111 lb 3 oz 04/29/18 04/30/18 05/01/18 06:59 06:59 06:59 Intake Total 910 Output Total 1825 Balance -915 - Physical Examination General/Neuro: alert & oriented x3 Neck: no JVD present Lungs: CTA (diminished at bases) Heart: RRR Abdomen: soft Extremities: other: (No edema) - Telemetry Telemetry Rhythm: SR - Labs Result Diagrams: 04/29/18 07:42 04/30/18 05:27 Troponin/CKMB Troponin I 0.018 ng/mL (< 0.028) 04/29/18 07:42 - Assessment/Plan 1. Non-ischemic CMY - EF on 04/02/2018 was 10-15%; Has worn LifeVest; On Bblokcer, Lasix, and Lisinopril 5mg qd; Echo within 3 months 2. Acute on chronic systolic HF - stable with current medication 3. HTN - stable 4. Hyperlipidemia - on statin 5. Current smoker - smoking cessation education given to the pt. MAR reviewed * the pt will f/u with Dr Moreno's office within 2-4wks. Pt, seen and eval. by me. I agree with the A/P by the REGIONAL ENGINEER. Review of Systems - Review of Systems Constitutional: reports: no symptoms reported EENTM: reports: no symptoms reported Respiratory: reports: no symptoms reported Cardiac (ROS): reports: no symptoms reported ABD/GI: reports: no symptoms reported : reports: no symptoms reported Musculoskeletal: reports: no symptoms reported
--- NOTE | 2018-04-30 13:56 | DIS ---
DATE OF ADMISSION: 04/29/2018 DATE OF DISCHARGE: 04/30/2018 DISCHARGE DISPOSITION: Home. PRIMARY DISCHARGE DIAGNOSES: Hivii-ex-objexon congestive heart failure exacerbation with systolic dysfunction and ejection fraction of around 15%; history of cardiomyopathy, nonischemic; dyslipidemia; hypertension; quit smoking a month back. PROCEDURES DONE DURING HOSPITALIZATION: Chest x-ray done showed cardiomegaly with pulmonary vascular congestion. LABORATORY DATA: H and H 15 and 49, platelet count 224. BNP was 4886. Troponin I within normal limits x1. BUN 23, creatinine 0.8. Albumin was 3.9. DISCHARGE MEDICATIONS: 1. Aspirin 81 mg p.o. daily. 2. Coreg 6.25 mg twice daily. 3. Lasix 40 mg p.o. daily. 4. Lisinopril 5 mg p.o. daily. 5. Pravachol 40 mg p.o. at bedtime. 6. Spironolactone 25 mg p.o. daily. ALLERGIES: NO KNOWN DRUG ALLERGIES. INPATIENT CONSULT: Dr. Euceda for Cardiology. DISCHARGE PLAN: The patient to follow up with [facility] as advised and primary care physician in one week. BRIEF COURSE DURING HOSPITALIZATION: The patient initially came to ER with complaints of severe shortness of breath. This prompted her to call EMS, and the patient was brought here. The patient had elevated BNP nearly up to 5000. She has known history of low ejection fraction with EF of 15% and was wearing LifeVest after a recent hospitalization in March. She was gently diuresed during her stay here. The patient received 80 mg of Lasix in the ER and had massive urine output. In addition to that, the patient was on 40 mg twice daily with which she has diuresed another extra 2 L. She is hemodynamically stable. The patient has diuresed extremely well in a short span of time and is wanting to go home. She is ambulating well. She has been cleared by Dr. Euceda for Cardiology. The patient needs to follow up with primary care physician in one week. Please note, I have given all prescriptions for her to get it filled at [facility], where she gets them. Please see a [id number] documentation for the day of discharge on [facility]. Job ID: [id number]
--- NOTE | 2018-05-02 20:52 | EKG ---
Test Reason : Blood Pressure : / mmHG Vent. Rate : 086 BPM Atrial Rate : 086 BPM P-R Int : 132 ms QRS Dur : 104 ms QT Int : 388 ms P-R-T Axes : 061 008 176 degrees QTc Int : 464 ms Sinus rhythm with Premature supraventricular complexes Possible Left atrial enlargement Left ventricular hypertrophy with repolarization abnormality Abnormal ECG Confirmed by MARIAH TRACEY, PRATIMA Nicole ([id number]), scientific editor TRIPP JONES ([id number]) on 05/02/2018 8:52:35 PM Referred By: Confirmed By:PRATIMA LEMUS MD
== END 2018-04-30 12:30 | disposition home or self-care (01) | DRG 293 ==
LOC: ERS 07:20 → ERHOLD 08:45 → 2NO 15:52
PROVIDERS: ADMIT Internal Medicine; ATTEND Internal Medicine
DX: I11.0 Hypertensive heart disease with heart failure (principal); I25.10 Atherosclerotic heart disease of native coronary artery without angina pectoris; I50.23 Acute on chronic systolic (congestive) heart failure; E78.5 Hyperlipidemia, unspecified; I42.8 Other cardiomyopathies; Z98.890 Other specified postprocedural states; Z79.82 Long term (current) use of aspirin; Z79.899 Other long term (current) drug therapy; Z71.6 Tobacco abuse counseling; Z87.891 Personal history of nicotine dependence
CPT/HCPCS: 36415; 71045; 80048; 80053; 82550; 83880; 84484; 85025; 93005; 94760; 96374; J1650; J1940

== ENCOUNTER 2019-04-30 07:07 | Emergency (ER) | payer SELFPAY ==
[2019-04-30 08:07] LABS: Hemoglobin 13.8 g/dL (12.0-16.0); Mean Corpuscular HGB CONC 33.3 g/dL (32.0-36.0); Mean Corpuscular Hemoglobin 29.9 pg (27.0-31.0); Mean Corpuscular Volume 89.9 fL (78.0-98.0); Mean Platelet Volume 7.5 fL (7.4-10.4); Platelet Count 227 thou/uL (130-400); RBC Distribution Width 11.3 % (11.5-14.5); Red Blood Cell (RBC) Count 4.63 mill/uL (4.20-5.40); White Blood Cell (WBC) Count 16.3 thou/uL (4.8-10.8)
--- NOTE | 2019-04-30 08:08 | RAD ---
Exam: Chest one view HISTORY:Chest pain Comparison: 04/29/2018 FINDINGS: Cardiac silhouette: Normal Aorta: Atherosclerosis of the aortic knob Pulmonary vessels: Normal Costophrenic angles: Clear LUNGS: Hyperinflation. Chronic changes. No mass or consolidation. Pneumothorax: None Osseous abnormalities: None IMPRESSION: Atherosclerosis. No acute cardiopulmonary process.
[2019-04-30 08:25] LABS: Band 5 % (5-11); Lymphocytes 8 % (21-51); MDiff Complete? YES; Monocytes 6 % (0-10); Neutrophil 81 % (42-75); RBC Morphology Normal
--- NOTE | 2019-04-30 08:28 | ULT ---
EXAM: US Gallbladder RUQ CLINICAL HISTORY: Abdominal pain. COMPARISON: None. FINDINGS: Pancreas: The head of the pancreas has a normal echotexture. The remainder the pancreas is obscured by bowel gas. Liver:Hepatic parenchyma has a normal echotexture. No hepatic masses or intrahepatic biliary dilatati on.. Right hepatic lobe: 14.8 cm Gallbladder: No sonographic evidence of cholelithiasis, gallbladder wall thickening or pericholecysti c fluid. Barrett's sign:Negative Portal Vein: Patent. Appropriate directional flow Bile ducts: Common bile duct diameter 0.46 cm Right kidney: No hydronephrosis. Right kidney measures 11.1 cm in length. IMPRESSION: Unremarkable exam.
[2019-04-30 08:29] LABS: ALT (SGPT) 21 U/L (8-55); AST (SGOT) 24 U/L (5-34); Albumin 3.7 g/dL (3.5-5.0); Alkaline Phosphatase 118 U/L (40-110); Anion Gap 14 mmol/L (10-20); BUN (Urea Nitrogen) 16 mg/dL (9.8-20.1); Bilirubin, Total 1.2 mg/dL (0.2-1.2); Calc. Creatinine Clearance 0 mL/min (70-130); Calcium 8.6 mg/dL (7.8-10.44); Carbon Dioxide 23 mmol/L (22-29); Chloride 103 mmol/L (98-107); Estimated GFR-MDRD 62; Globulin 2.7 g/dL (2.4-3.5); Glucose 111 mg/dL (70-105); Lipase 9 U/L (8-78); Potassium 4.1 mmol/L (3.5-5.1); Protein, Total 6.4 g/dL (6.0-8.3); Sodium 136 mmol/L (136-145)
[2019-04-30] MEDS ORDERED: Iopamidol-370 76% 500 ML 1 ML ONE (10:35)
[2019-04-30 10:45] LABS: Bacteria/HPF 2+ HPF (None Seen); Bilirubin Negative (Negative); Blood, Urine 2+ (Negative); Clarity Extra Turbid (Clear); Glucose, Urine (Dipstick) Normal (Negative); Leukocyte 500 Leu/uL (Negative); Nitrite 2+ (Negative); Protein, Urine (Dipstick) 200 mg/dL (Neg-Trace); Squamous Epithelial None Seen HPF (0-3); Urobilinogen Normal mg/dL (Less than 2); WBC/HPF Greater than 50 HPF (0-3)
--- NOTE | 2019-04-30 10:59 | CT ---
EXAM: CT ABDOMEN AND PELVIS HISTORY: Abdominal pain. Left flank pain. COMPARISON: None. Procedure: Multiple contiguous axial images were obtained and a CT of the abdomen and pelvis with IV contrast. C oronal reformats were performed. FINDINGS: Lower Chest: Minimal infiltrate in the lingula. Dependent atelectatic changes in both lower lobes. Ca lcified granuloma in the left lower lobe, measuring 0.3 cm Vessels: Atherosclerosis of a normal caliber aorta. Heart: Cardiomegaly. No significant pericardial fluid. Abdomen: Portal vein:Patent Gallbladder: No calcified gallstones. Normal caliber wall. Liver: within normal limits. Pancreas: within normal limits. Spleen: within normal limits. Adrenals: within normal limits. Kidneys: There is symmetric enhancement. No evidence of obstructive uropathy. However, there is mild enhancement involving both renal pelvis series as well as intermittent enhancement along the right ureter. Peritoneum: No ascites or free air, no fluid collection. Bowel: Limited evaluation due to the lack of oral contrast administration. No evidence of bowel obstr uction. Ileocecal junction is unremarkable. Appendix is not appreciated. Scattered fecal material in a nondistended, nondilated colon. Mesentery and Retroperitoneum: No enlarged mesenteric or retroperitoneal lymph nodes. Abdominal Wall: within normal limits. Pelvis: Reproductive Organs: Uterus and adnexal structures are grossly unremarkable. Pelvis: No mass, lymphadenopathy, free air or free fluid. Bladder: Limited evaluation due to inadequate distention. No obvious mucosal abnormality. Nonspecific mild mucosal enhancement. Correlate for cystitis Bones: Grade 1 anterolisthesis of L4 upon L5. No lytic or blastic lesions IMPRESSION: 1. Right greater than left enhancement involving the intrarenal collecting system. Additionally there appears to be enhancement involving the mucosa of the left ureter. Mild enhancement of the urinary bladder mucosa may be present. Correlate for cystitis with ascending urinary tract infection. Current ly, no CT evidence of pyelonephritis. 2. Minimal lingula infiltrate
== END 2019-04-30 11:58 | disposition home or self-care (01) ==
LOC: ERS 07:07
DX: N39.0 Urinary tract infection, site not specified (principal); I11.0 Hypertensive heart disease with heart failure; I50.9 Heart failure, unspecified; E78.5 Hyperlipidemia, unspecified; F17.210 Nicotine dependence, cigarettes, uncomplicated; Z79.82 Long term (current) use of aspirin; Z79.899 Other long term (current) drug therapy
CPT/HCPCS: 71045; 74177; 76705; 80053; 81003; 81015; 83690; 83880; 84484; 85025; 93005; Q9967

== ENCOUNTER 2019-06-15 10:56 | Emergency (ER) | payer SELFPAY ==
--- NOTE | 2019-06-15 11:52 | RAD ---
XR Chest 1 View Portable History: Chest pain Comparison: Radiograph April 30, 2019 Findings: Lungs are hyperinflated. No pneumothorax. Mild scarring lung apices. No displaced rib fracture. No confluent airspace consolidation. Mild reverse S-shaped scoliosis. Impression: Obstructive pulmonary disease. No acute intrathoracic abnormality.
[2019-06-15 12:04] LABS: #Basophils 0.1 thou/uL (0.0-0.2); #Eosinphils 0.2 thou/uL (0.0-0.7); #Lymphocytes 1.8 thou/uL (1.20-3.40); #Monocytes 0.5 thou/uL (0.11-0.59); #Neutrophils 4.7 thou/uL (1.40-6.50); %Eosinophils 3.2 % (0.0-10.0); %Lymphocytes 24.5 % (21.0-51.0); %Neutrophils 64.3 % (42.0-75.0); Hemoglobin 14.2 g/dL (12.0-16.0); Mean Corpuscular HGB CONC 31.6 g/dL (32.0-36.0); Mean Corpuscular Hemoglobin 28.6 pg (27.0-31.0); Mean Corpuscular Volume 90.6 fL (78.0-98.0); Platelet Count 318 thou/uL (130-400); RBC Distribution Width 12.3 % (11.5-14.5); Red Blood Cell (RBC) Count 4.95 mill/uL (4.20-5.40); White Blood Cell (WBC) Count 7.4 thou/uL (4.8-10.8)
[2019-06-15 12:47] LABS: ALT (SGPT) 14 U/L (8-55); AST (SGOT) 17 U/L (5-34); Albumin 4.7 g/dL (3.5-5.0); Alkaline Phosphatase 132 U/L (40-110); Anion Gap 12 mmol/L (10-20); BUN (Urea Nitrogen) 16 mg/dL (9.8-20.1); Bilirubin, Total 0.6 mg/dL (0.2-1.2); Calc. Creatinine Clearance 0 mL/min (70-130); Calcium 9.8 mg/dL (7.8-10.44); Carbon Dioxide 29 mmol/L (22-29); Chloride 104 mmol/L (98-107); Estimated GFR-MDRD 61; Globulin 3.1 g/dL (2.4-3.5); Glucose 90 mg/dL (70-105); Protein, Total 7.8 g/dL (6.0-8.3); Sodium 141 mmol/L (136-145)
== END 2019-06-15 14:10 | disposition home or self-care (01) ==
LOC: ERS 10:56
DX: R06.02 Shortness of breath (principal); I25.10 Atherosclerotic heart disease of native coronary artery without angina pectoris; I50.9 Heart failure, unspecified; E78.5 Hyperlipidemia, unspecified; E78.00 Pure hypercholesterolemia, unspecified; F17.210 Nicotine dependence, cigarettes, uncomplicated; Z79.899 Other long term (current) drug therapy; Z79.82 Long term (current) use of aspirin
CPT/HCPCS: 36415; 71045; 80053; 83880; 84484; 85025; 93005

== ENCOUNTER 2023-07-01 14:47 | Outpatient (CLI) | payer OTHER | END 2023-07-01 14:48 | disposition home or self-care (01) | LOC: BICRAD 14:47 | PROVIDERS: ATTEND Preventive Medicine Occupational Medicine | DX: M25.561 Pain in right knee (principal); M25.562 Pain in left knee; I51.7 Cardiomegaly; J44.9 Chronic obstructive pulmonary disease, unspecified; M17.12 Unilateral primary osteoarthritis, left knee | CPT/HCPCS: 71046 ==